=== PATIENT | female | born 2000 | race Two or more races ===

== ENCOUNTER 2024-04-02 08:47 | Outpatient (CLI) | payer OTHER ==
[2024-04-03] MEDS ORDERED: PRENA1 TRUE CO1 EACH PO (03:54)
[2024-04-03] MEDS ORDERED: CEFADROXIL250 MG/5 M PO (08:21)
[2024-04-03] MEDS ORDERED: PEPCID40 MG PO (08:21)
== END 2024-04-02 08:49 | disposition home or self-care (01) ==
LOC: PRENATAL 08:47
PROVIDERS: ATTEND Obstetrics & Gynecology Maternal & Fetal Medicine
DX: O36.80X0 Pregnancy with inconclusive fetal viability, not applicable or unspecified (principal); Z36.82 Encounter for antenatal screening for nuchal translucency; Z3A.13 13 weeks gestation of pregnancy

== ENCOUNTER 2024-04-03 03:23 | Emergency (ER) | payer OTHER ==
[~2024-04-03] VITALS: Ht 154.9 cm; Wt 53.1 kg
[2024-04-03 03:54] VITALS: BP 133/85; O2SAT 98
[2024-04-03] MEDS ORDERED: PRENA1 TRUE CO1 EACH PO (03:54)
[2024-04-03] MEDS ORDERED: FAMOTIDINE/PF 20 MG/2 ML VIAL IV PUSH STA (04:13)
[2024-04-03] MEDS ORDERED: PROMETHAZINE HCL 50 MG/ML AMPUL IM STA (04:14)
[2024-04-03] MEDS ORDERED: 0.9 % SODIUM CHLORIDE 1,000 ML IV ONE (04:15)
[2024-04-03 05:37] LABS: HEMATOCRIT 32.3 % (36.0-45.00); HEMOGLOBIN 11.5 g/dL (12.0-15.00); MEAN CELL VOLUME 89.5 fL (80.00-100.00); MEAN CORPUSCULAR HEMOGLOBIN 31.8 pg (27.00-32.0); MEAN CORPUSCULAR HGB CONC 35.5 g/dl (32.0-36.0); PLATELET COUNT 253 K/uL (150-450); RED BLOOD COUNT 3.61 M/uL (4.00-6.00); RED CELL DISTRIBUTION WIDTH 12.8 % (11.5-14.5)
[2024-04-03 06:01] LABS: ALBUMIN 3.3 gm/dL (3.4-5.0); BILIRUBIN TOTAL 0.41 mg/dL (0.3-1.2); CALCIUM 8.5 mg/dL (8.5-10.1); CREATININE SERUM 0.61 mg/dL (0.55-1.02); GFR 120.5; GLOBULINA 3.9 G/DL (2.4-3.5); POTASSIUM 3.57 mEq/L (3.5-5.1); TOTAL PROTEIN 7.2 gm/dL (6.4-8.2)
[2024-04-03 06:19] LABS: URINE APPEARANCE Cloudy; URINE BILIRRUBIN Negative (NEGATIVE); URINE BLOOD Negative; URINE COLOR Yellow; URINE GLUCOSE Negative (NEGATIVE); URINE KETONE Negative (NEGATIVE); URINE LEUKOCYTE Large; URINE NITRATE Negative; URINE PROTEIN Trace (NEGATIVE)
[2024-04-03 06:22] LABS: URINE BACTERIA 4406.2 uL (0.0-1933); URINE EPITHELIAL CELLS 69.8 uL (0.0-38.8); URINE WBC 176.2 uL (0.0-23.2)
[2024-04-03 06:48] LABS: URINE CRYSTALS MODERATE /HPF; URINE RBC 1.3 uL (0.0-20.8)
[2024-04-03] MEDS ORDERED: CEFTRIAXONE SODIUM 1,000 MG VIAL IV STA (08:10)
[2024-04-03] MEDS ORDERED: CEFADROXIL250 MG/5 M PO (08:21)
[2024-04-03] MEDS ORDERED: PEPCID40 MG PO (08:21)
== END 2024-04-03 08:57 ==
LOC: ER 03:25
PROVIDERS: General Practice
DX: O21.9 Vomiting of pregnancy, unspecified (principal); N39.0 Urinary tract infection, site not specified

== ENCOUNTER 2024-05-19 15:46 | Outpatient (CLI) | payer OTHER ==
[~2024-05-19 15:46] MED LIST: CEFADROXIL250 MG/5 M PO; PEPCID40 MG PO; PRENA1 TRUE CO1 EACH PO
== END 2024-05-19 15:47 | disposition home or self-care (01) ==
LOC: PRENATAL 15:46
PROVIDERS: ATTEND Obstetrics & Gynecology Maternal & Fetal Medicine
DX: O44.00 Complete placenta previa NOS or without hemorrhage, unspecified trimester (principal); Z3A.20 20 weeks gestation of pregnancy

== ENCOUNTER 2024-08-12 14:13 | Outpatient (CLI) | payer OTHER | END 2024-08-12 14:15 | disposition home or self-care (01) | LOC: PRENATAL 14:13 | PROVIDERS: ATTEND Obstetrics & Gynecology Maternal & Fetal Medicine | DX: O26.849 Uterine size-date discrepancy, unspecified trimester (principal); O36.8199 Decreased fetal movements, unspecified trimester, other fetus; Z3A.30 30 weeks gestation of pregnancy ==

== ENCOUNTER → 2024-09-02 14:14 | Outpatient (CLI) | payer OTHER | END | disposition home or self-care (01) | LOC: PRENATAL 14:14 | PROVIDERS: ATTEND Obstetrics & Gynecology Maternal & Fetal Medicine | DX: O26.849 Uterine size-date discrepancy, unspecified trimester (principal); O36.8199 Decreased fetal movements, unspecified trimester, other fetus; O36.5990 Maternal care for other known or suspected poor fetal growth, unspecified trimester, not applicable or unspecified; Z3A.33 33 weeks gestation of pregnancy ==

== ENCOUNTER 2024-09-25 11:27 | Outpatient (CLI) | payer OTHER ==
[~2024-09-25] VITALS: Ht 149.9 cm; Wt 60.8 kg
[2024-09-25 10:03] VITALS: BP 138/71
[2024-09-25 11:58] LABS: URINE APPEARANCE Turbid; URINE BILIRRUBIN Negative (NEGATIVE); URINE BLOOD Small; URINE COLOR Yellow; URINE GLUCOSE Negative (NEGATIVE); URINE KETONE Negative (NEGATIVE); URINE LEUKOCYTE Large; URINE NITRATE Negative; URINE PROTEIN 30 (NEGATIVE)
[2024-09-25 12:02] LABS: URINE CAST 4.12 uL (0.0-1.40); URINE RBC 8.1 uL (0.0-20.8); URINE WBC 1644.7 uL (0.0-23.2)
[2024-09-25 12:04] LABS: HEMATOCRIT 34.5 % (36.0-45.00); HEMOGLOBIN 11.9 g/dL (12.0-15.00); MEAN CELL VOLUME 92.4 fL (80.00-100.00); MEAN CORPUSCULAR HEMOGLOBIN 31.8 pg (27.00-32.0); MEAN CORPUSCULAR HGB CONC 34.5 g/dl (32.0-36.0); PLATELET COUNT 167 K/uL (150-450); RED BLOOD COUNT 3.74 M/uL (4.00-6.00); RED CELL DISTRIBUTION WIDTH 14.6 % (11.5-14.5)
[2024-09-25 12:14] LABS: URINE BACTERIA > 9821.5 uL (0.0-1933); URINE EPITHELIAL CELLS > 201.7 uL (0.0-38.8)
[2024-09-25 12:15] LABS: URINE YEAST FEW /hpf
[2024-09-25] MEDS ORDERED: VALTREX1000 MG PO (12:16)
[2024-09-25 12:26] LABS: INR < 0.93; PARTIAL THROMBOPLASTIN TIME 27.9 SECONDS (22.0-34.0)
[2024-09-25] MEDS ORDERED: RINGERS SOLUTION,LACTATED 1,000 ML IV SCH (13:15)
[2024-09-25 15:08] VITALS: BP 123/77
[2024-09-25] MEDS ORDERED: CEFAZOLIN SODIUM 1,000 MG VIAL IV SCH (17:00)
[2024-09-25 19:14] VITALS: BP 142/90; O2SAT 100
[2024-09-26] VITALS: BP 130/97
[2024-09-26 03:44] VITALS: BP 120/79
[2024-09-26 07:26] VITALS: BP 122/753
[2024-09-26 11:25] VITALS: BP 114/75
[2024-09-26 13:31] VITALS: BP 114/75
== END 2024-09-26 13:33 | disposition home or self-care (01) ==
LOC: OBS/DEL 11:27
PROVIDERS: Obstetrics & Gynecology; ATTEND Obstetrics & Gynecology
DX: O23.43 Unspecified infection of urinary tract in pregnancy, third trimester (principal); N39.0 Urinary tract infection, site not specified; O47.1 False labor at or after 37 completed weeks of gestation; Z3A.38 38 weeks gestation of pregnancy

== ENCOUNTER 2024-10-02 14:53 | Inpatient (IN) | payer OTHER ==
[~2024-10-02] VITALS: Ht 149.9 cm; Wt 62.6 kg
[~2024-10-02 14:53] MED LIST changes: +VALTREX1000 MG PO
[2024-10-02] MEDS ORDERED: AMPICILLIN SODIUM 1,000 MG VIAL ONE (15:30)
[2024-10-02 15:46] VITALS: BP 129/87
[2024-10-02] MEDS ORDERED: RINGERS SOLUTION,LACTATED 1,000 ML IV SCH (16:00)
[2024-10-02] MEDS ORDERED: AMPICILLIN SODIUM 2,000 MG VIAL IV ONE (16:00)
[2024-10-02 16:45] LABS: HEMATOCRIT 36.7 % (36.0-45.00); HEMOGLOBIN 12.7 g/dL (12.0-15.00); MEAN CELL VOLUME 92.9 fL (80.00-100.00); MEAN CORPUSCULAR HEMOGLOBIN 32.2 pg (27.00-32.0); MEAN CORPUSCULAR HGB CONC 34.6 g/dl (32.0-36.0); PLATELET COUNT 203 K/uL (150-450); RED BLOOD COUNT 3.95 M/uL (4.00-6.00)
[2024-10-02 16:56] LABS: URINE APPEARANCE Clear; URINE BILIRRUBIN Negative (NEGATIVE); URINE BLOOD Negative; URINE COLOR Yellow; URINE GLUCOSE Negative (NEGATIVE); URINE KETONE Negative (NEGATIVE); URINE LEUKOCYTE Large; URINE NITRATE Negative; URINE PROTEIN Trace (NEGATIVE); URINE UROBILINOGEN 0.2 E.U./dl
[2024-10-02 17:00] LABS: URINE BACTERIA 3401.1 uL (0.0-1933); URINE EPITHELIAL CELLS 30.7 uL (0.0-38.8); URINE WBC 233.3 uL (0.0-23.2)
[2024-10-02 17:02] LABS: URINE CAST 0.29 uL (0.0-1.40); URINE RBC 0.4 uL (0.0-20.8)
[2024-10-02 17:12] LABS: URINE EPITHELIAL CELLS 0-4 /HPF
[2024-10-02 17:36] LABS: INR < 0.93; PARTIAL THROMBOPLASTIN TIME 27.9 SECONDS (22.0-34.0); PROTHROMBIN TIME 9.9 SECONDS (9.0-11.5)
[2024-10-02 17:46] LABS: ALBUMIN 2.7 gm/dL (3.4-5.0); BILIRUBIN TOTAL 0.71 mg/dL (0.3-1.2); CALCIUM 9.2 mg/dL (8.5-10.1); CREATININE SERUM 0.66 mg/dL (0.55-1.02); GFR 109.12; GLOBULINA 3.9 G/DL (2.4-3.5); POTASSIUM 4.05 mEq/L (3.5-5.1); TOTAL PROTEIN 6.6 gm/dL (6.4-8.2)
[2024-10-02 19:30] VITALS: BP 127/80
[2024-10-02] MEDS ORDERED: AMPICILLIN SODIUM 1,000 MG VIAL IV SCH (20:00)
[2024-10-02 23:14] VITALS: BP 123/77
[2024-10-03] VITALS (8 sets, daily range): BP systolic 124–145; BP diastolic 70–93
[2024-10-03] MEDS ORDERED: OXYTOCIN 20 UNITS/500ML RL PIGGYBAG IV ONE (07:43)
[2024-10-03] MEDS ORDERED: OXYTOCIN 500 ML IV SCH (08:00)
[2024-10-03] MEDS ORDERED: MORPHINE SULFATE 4 MG/ML VIAL IV ONE (13:45)
[2024-10-03] MEDS ORDERED: OXYTOCIN 20 UNITS/1000ML RL PIGGYBAG IV ONE (16:34)
[2024-10-03] MEDS ORDERED: ERYTHROMYCIN BASE OPHT 1GM EACH TUBE OP ONE (16:34)
[2024-10-03] MEDS ORDERED: OXYTOCIN 10 UNITS/ML VIAL ONE (16:35)
[2024-10-03] MEDS ORDERED: LIDOCAINE HCL 1% 10ML VIAL ONE (16:35)
[2024-10-03] MEDS ORDERED: CHLORHEXIDINE GLUCONATE 120 ML BOTTLE TOP ONE (16:35)
[2024-10-03] MEDS ORDERED: IBUprofen 400 MG TABLET PO PRN (17:45)
[2024-10-03] MEDS ORDERED: OXYTOCIN 1,000 ML IV SCH (18:00)
[2024-10-03] MEDS ORDERED: OXYTOCIN 10 UNITS/ML VIAL IM STA (18:00)
[2024-10-03] MEDS ORDERED: CHLORHEXIDINE GLUCONATE 120 ML BOTTLE TP SCH (18:00)
[2024-10-03 21:39] LABS: HEMATOCRIT 37.5 % (36.0-45.00); HEMOGLOBIN 12.7 g/dL (12.0-15.00); MEAN CELL VOLUME 93.9 fL (80.00-100.00); MEAN CORPUSCULAR HEMOGLOBIN 31.7 pg (27.00-32.0); MEAN CORPUSCULAR HGB CONC 33.7 g/dl (32.0-36.0); PLATELET COUNT 189 K/uL (150-450); RED BLOOD COUNT 3.99 M/uL (4.00-6.00); RED CELL DISTRIBUTION WIDTH 15.3 % (11.5-14.5)
[2024-10-04] VITALS: BP 134/80
[2024-10-04 07:46] VITALS: BP 131/84
[2024-10-04 16:34] VITALS: BP 140/85
[2024-10-05] VITALS: BP 133/96
[2024-10-05 04:00] VITALS: BP 91/68
[2024-10-05 08:15] VITALS: BP 137/94
== END 2024-10-05 12:29 | disposition home or self-care (01) | DRG 807 ==
LOC: LDR 14:53 → OB/GYN 10-03 18:10
PROVIDERS: ADMIT Obstetrics & Gynecology; ATTEND Obstetrics & Gynecology
PROC: 4A1HXCZ Monitoring of Products of Conception, Cardiac Rate, External Approach (ICD-10-PCS; 2024-10-02)
PROC: 3E0P7VZ Introduction of Hormone into Female Reproductive, Via Natural or Artificial Opening (ICD-10-PCS; 2024-10-02)
PROC: 10E0XZZ Delivery of Products of Conception, External Approach (ICD-10-PCS; principal; 2024-10-03)
PROC: 0HQ9XZZ Repair Perineum Skin, External Approach (ICD-10-PCS; 2024-10-03)
PROC: 3E033VJ Introduction of Other Hormone into Peripheral Vein, Percutaneous Approach (ICD-10-PCS; 2024-10-03)
DX: O70.0 First degree perineal laceration during delivery (principal); Z37.0 Single live birth; O14.94 Unspecified pre-eclampsia, complicating childbirth; O99.824 Streptococcus B carrier state complicating childbirth; O36.5930 Maternal care for other known or suspected poor fetal growth, third trimester, not applicable or unspecified; Z3A.39 39 weeks gestation of pregnancy